=== PATIENT | female | born 1940 | race Caucasian/White ===

== ENCOUNTER → 2019-02-05 | Day surgery (SDC) | payer MEDICARE ==
--- NOTE | 2019-02-05 09:43 | MMO ---
LEFT BREAST STEREOTACTIC BIOPSY: COMPARISON: Mammogram from [facility] on 01/21/2019. FINDINGS: Successful left breast stereotactic biopsy. Calcification is present in the sample. A total of six 10 gauge core biopsy samples are obtained. Post biopsy clip is noted on the stereotactic images. Post biopsy clip appears to be appropriately positioned. TECHNIQUE: Consent obtained to perform a left breast stereotactic biopsy. The patient was placed in the prone p osition on the stereotactic table. In the lateral compression, calcifications were identified. The skin was prepped and draped in the usual sterile fashion. Lidocaine was used for local anesthesia. A small skin rebeca was made. Needle position was confirmed pre and post firing. Stereotactic biopsy was performed. Six 10-gauge core samples were obtained and radiographed. Calcifications were presen t. A biopsy clip was placed. Hemostasis was achieved with manual compression. Post biopsy mammogra m was performed. Clip position was appropriate. IMPRESSION: Successful left breast stereotactic biopsy. Final pathologic diagnosis is pending. POS: [facility]
== END ==
LOC: MAMMO 07:19
PROVIDERS: ATTEND Obstetrics & Gynecology
PROC: 0HBU3ZX Excision of Left Breast, Percutaneous Approach, Diagnostic (ICD-10-PCS; principal; 2019-02-05)
DX: D24.2 Benign neoplasm of left breast (principal)
CPT/HCPCS: 19081; 76098; 88305